=== PATIENT | male | born 1975 ===

== ENCOUNTER 2019-05-15 20:40 | Emergency (ER) | payer OTHER ==
--- NOTE | 2019-05-15 23:24 | ED ---
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 Patient states he is unable to move his right upper extremity due to pain. Patient is neurovascularly intact and has brisk capillary refill at the fingers as well as a 2+ radial pulse. There is pain with palpation of the lateral humeral head. No obvious deformity although the shoulder is deformed from prior surgery. Patient is otherwise well and denies fever, chest pain, abdominal pain, shortness of breath, pain with urination, nausea, vomiting, diarrhea. - History of Current Complaint Chief Complaint: EDExtremityUpper Stated Complaint: RT SHOULDER INJURY PER CO Time Seen by Provider: 05/15/19 22:18 Hx Obtained From: Patient Mechanism Of Injury: Fall From A Standing Position Onset/Duration: Started Hours Ago Timing: Constant Severity Initially: Severe Severity Currently: Severe Pain Location: Shoulder Character: Aching Aggravating Factor(s): Movement, Lifting, Flexion, Extension, Abduction, Adduction Alleviating Factor(s): Rest Associated Signs & Symptoms: Positive: Weakness. Negative: Swelling, Redness, Fever, Numbness/Tingling, Chest Pain, Back Pain, Nausea, Vomiting - Allergies/Home Medications Allergies/Adverse Reactions: Allergies Allergy/AdvReac Type Severity Reaction Status Date / Time ibuprofen Allergy Rash Verified 05/15/19 22:27 ketorolac [From Toradol] Allergy Rash Verified 05/15/19 22:27 Home Medications: Home Medications Depakote ER TAB(*) 1,000 mg PO BID 05/15/19 [History Confirmed 05/15/19] Mobic 7.5 mg PO BID 05/15/19 [History Confirmed 05/15/19] Wellbutrin XL * 300 mg PO DAILY 05/15/19 [History Confirmed 05/15/19] PMH/Surg Hx/FS Hx/Imm Hx Infectious Disease History: No Infectious Disease History: Denies: Traveled Outside the [place] in Last 30 Days - Social History Alcohol Use: None Substance Use Type: Reports: None Smoking Status (MU): Heavy Every Day Tobacco Smoker Review of Systems Constitutional: Negative Eyes: Negative ENT: Negative Cardiovascular: Negative Respiratory: Negative Gastrointestinal: Negative Genitourinary: Negative Positive: Arthralgia, Decreased ROM Skin: Negative Neurological/Mental Status: Negative Psychological: Normal All Other Systems Reviewed And Are Negative: Yes Physical Exam - Summary Physical Exam Summary: Patient has diminished range of motion of the right shoulder due to pain. 2+ radial pulse with brisk capillary refill bilaterally. Patient has pain with palpation of the lateral shoulder. No obvious deformity. Surgical scars noted from previous surgery. Triage Information Reviewed: Yes Vital Signs On Initial Exam: Initial Vitals Temp Pulse Resp BP Pulse Ox 98 F 82 18 125/87 98 05/15/19 20:44 05/15/19 20:44 05/15/19 20:44 05/15/19 20:44 05/15/19 20:44 Vital Signs Reviewed: Yes Appearance: Positive: Well-Appearing, No Pain Distress, Well-Nourished Skin: Positive: Warm, Skin Color Reflects Adequate Perfusion Eyes: Positive: EOMI, JOCELYN ENT: Positive: Hearing grossly normal Respiratory/Lung Sounds: Positive: Clear to Auscultation, Breath Sounds Present Cardiovascular: Positive: RRR, S1, S2 Bowel Sounds: Positive: Present Musculoskeletal: Positive: Strength/ROM Intact Neurological: Positive: Sensory/Motor Intact, Alert, Oriented to Person Place, Time, Normal Gait, Facial Symmetry, Speech Normal Psychiatric: Positive: Normal, Affect/Mood Appropriate AVPU Assessment: Alert Procedures - Sedation Patient Received Moderate/Deep Sedation with Procedure: No Diagnostics - Vital Signs Vital Signs Temp Pulse Resp BP Pulse Ox 05/15/19 20:44 98 F 82 18 125/87 98 - Laboratory Lab Statement: Any lab studies that have been ordered have been reviewed, and results considered in the medical decision making process. Course/Dx - Course Course Of Treatment: Patient was evaluated in the emergency department today for right shoulder pain after a fall. Vitals noted. Patient was given 5-325 [place]. X-ray was done of the right shoulder which showed no evidence of dislocation or fracture. Patient was given a sling. Patient discharged with outpatient follow-up with orthopedics. Patient shoulder pain is likely due to contusion or minor sprain/strain. - Diagnoses Differential Diagnosis/HQI/PQRI: Positive: Contusion, Fracture (Closed), Hematoma, Strain, Sprain Provider Diagnoses: Right shoulder pain Discharge ED - Sign-Out/Discharge Documenting (check all that apply): Patient Departure - Discharge Plan Condition: Stable Disposition: HOME Patient Education Materials: Shoulder Pain (ED) Referrals: Danae Olvera MD [Medical Doctor] - 5 Days Additional Instructions: You were seen in the emergency department today for shoulder pain. Please follow up with Orthopedics in 5 days for further evaluation and management of your injury. Until you are seen by Orthopedics please return to activity is tolerated. For further alleviation of your symptoms please practice R.I.C.E therapy. Rest, Ice, compress, elevate the affected area. Ibuprofen 600mg three times daily with meals for pain. If numbness, tingling, decreased sensation, increased pain, temperature changes or pallor noted in toes, come back to ER immediately. Protect the area. For your comfort level, do not bear weight, pull or push until you can injury is somewhat healed. This may involve the need for immobilization or crutches for a period of time. Rest the involved area, but not too long. You may need to be off your injury for some time to allow for healing, however excessive immobilization of joints can lead to stiffness and delay healing time. Early mobilization is encouraged if it is pain-free. Ice: Not directly on the skin. Cover with a towel. Apply ice no more than 30 minutes at a time Compression: You may use and keep an chelsie wrap bandage over the injury to decrease swelling. Again, this should be limited and be taken off periodically to encourage early range of motion and mobilization. Elevate: Try to elevate the injured area above the heart whenever possible, Especially during sleep. - Billing Disposition and Condition Condition: STABLE Disposition: Home
[2019-05-15] MEDS ORDERED: HYDROcodone/ACETAMIN 5-325 MG* 1 TAB PO ONE (23:27)
[2019-05-16 01:40] VITALS: BP 99/56
== END 2019-05-16 01:00 | disposition home or self-care (01) ==
LOC: ED 20:40
DX: M25.511 Pain in right shoulder (principal); W18.30XA Fall on same level, unspecified, initial encounter; Y93.E1 Activity, personal bathing and showering; Y92.002 Bathroom of unspecified non-institutional (private) residence as the place of occurrence of the external cause; Z98.1 Arthrodesis status; Z88.6 Allergy status to analgesic agent; Z88.5 Allergy status to narcotic agent; F17.200 Nicotine dependence, unspecified, uncomplicated
CPT/HCPCS: 99283